=== PATIENT | female | born 1990 | race African-American/Black ===

== ENCOUNTER 2016-10-20 22:58 | Inpatient (IN) | payer OTHER ==
[2016-10-20 23:39] LABS: URINE SOURCE VOIDED
[2016-10-20 23:54] LABS: BILIRUBIN URINE NEGATIVE (NEGATIVE); BLOOD URINE 1+ (NEGATIVE); CLARITY CLEAR (CLEAR); COLOR YELLOW; GLUCOSE URINE NEGATIVE (NEGATIVE); LEUKOCYTES URINE 2+ (NEGATIVE); NITRITE URINE NEGATIVE (NEGATIVE); PROTEIN URINE 1+(30 mg/dL) mg/dL (NEGATIVE); SP GRAVITY URINE 1.015; UROBILINOGEN URINE 1+(1 mg/dL)
[2016-10-21] MEDS ORDERED: STADOL IV PRN (00:19)
[2016-10-21] MEDS ORDERED: PEPCID PO PRN (00:19)
[2016-10-21] MEDS ORDERED: KEFZOL 1 GM/D5W 50 ML IV PRN (00:19)
[2016-10-21] MEDS ORDERED: ZOFRAN IV PRN (00:19)
[2016-10-21] MEDS ORDERED: PEPCID IV PRN (00:19)
[2016-10-21] MEDS ORDERED: TYLENOL PO PRN (00:19)
[2016-10-21] MEDS ORDERED: PITOCIN 30 UNITS/LR 500 ML IV SCH (00:30)
[2016-10-21] MEDS ORDERED: SODIUM CHLORIDE 0.9% INJ SCH (00:30)
[2016-10-21] MEDS: LR 1,000 ML IV SCH ×3 (00:48→08:58)
[2016-10-21] MEDS ORDERED: MINERAL OIL ONE (03:25)
[2016-10-21] MEDS ORDERED: XYLOCAINE-MPF 1% ONE (03:25)
[2016-10-21] MEDS ORDERED: MARCAINE 0.25% PF ONE (03:31)
[2016-10-21] MEDS ORDERED: FENTANYL-BUPIV-NS 2 MCG-0.1% 200 ML ONE (03:31)
[2016-10-21 03:59] LABS: MANUAL DIFF NEEDED? NO
[2016-10-21 04:00] LABS: BASO% 0.1 % (0.0-0.8); EOS# 0.06 X1000 (0.0-0.7); EOS% 0.6 % (0.0-10.0); HEMATOCRIT 31.2 % (37.0-47.0); HEMOGLOBIN 10.4 g/dL (12.0-16.0); IMM GRAN# 0.01 X1000 (0.0-0.04); IMM GRAN% 0.1 % (0.0-0.5); LYMPH# 1.53 X1000 (1.2-3.4); LYMPH% 14.4 % (20.5-51.1); MCH 27.7 PG (27-31); MCHC 33.3 g/dL (33-37); MCV 83.2 FL (81-99); MONO# 1.05 X1000 (0.11-0.59); MONO% 9.9 % (1.7-9.3); MPV 12.1 FL (7.4-10.4); NEUT% 74.9 % (42.2-75.2); PLT 211 X1000 (130-400); RBC 3.75 XMIL (4.2-5.4)
[2016-10-21] MEDS ORDERED: GENTAMICIN IV PER PHARMACY MISC SCH (07:15)
[2016-10-21] MEDS: AMPICILLIN 2 GM/NS 100 ML IV SCH ×2 (07:26→20:12)
[2016-10-21] MEDS: GENTAMICIN IV SCH (08:12)
[2016-10-21] MEDS: NS IV SCH (08:12)
[2016-10-21 08:15] LABS: AGAP 14; BUN 6 mg/dL (8-22); CALCIUM 9.2 mg/dL (8.8-10.2); CHLORIDE 100 mmol/L (98-107); COSMO 266; SODIUM 134 mmol/L (136-145); TCO2 21 mmol/L (25-35)
[2016-10-21] MEDS ORDERED: PERCOCET-10 PO PRN (10:35)
[2016-10-21] MEDS ORDERED: BENADRYL IV PRN (10:35)
[2016-10-21] MEDS ORDERED: PITOCIN 30 UNITS/LR 500 ML IV ONE (10:35)
[2016-10-21] MEDS ORDERED: BENADRYL PO PRN (10:35)
[2016-10-21] MEDS ORDERED: PERI MEDS (DERMOPLAST/NUPERCAINAL/TUCKS) MISC PRN (10:35)
[2016-10-21] MEDS ORDERED: XYLOCAINE-MPF 1% INJ PRN (10:35)
[2016-10-21] MEDS ORDERED: PITOCIN IM PRN (10:35)
[2016-10-21] MEDS ORDERED: PERCOCET-5 PO PRN (10:35)
[2016-10-21] MEDS ORDERED: HYDROXYZINE IM PRN (10:35)
[2016-10-21] MEDS ORDERED: MOTRIN PO PRN (10:35)
[2016-10-21] MEDS ORDERED: M-M-R II VACCINE SUBQ ONE (10:35)
[2016-10-21] MEDS ORDERED: CYTOTEC PO PRN (10:35)
[2016-10-21] MEDS ORDERED: AMBIEN PO PRN (10:35)
[2016-10-21] MEDS ORDERED: HYDROXYZINE PO PRN (10:35)
[2016-10-21] MEDS ORDERED: MINERAL OIL MISC PRN (10:35)
[2016-10-21] MEDS ORDERED: PITOCIN 20 UNITS/LR 1,000 ML IV SCH (10:45)
[2016-10-21] MEDS ORDERED: NS 500 ML ONE (19:34)
[2016-10-21] MEDS: PERICOLACE PO SCH (20:13)
[2016-10-22] MEDS: NS IV SCH ×3 (00:06→09:02)
[2016-10-22] MEDS: GENTAMICIN IV SCH ×3 (00:06→09:02)
[2016-10-22] MEDS: AMPICILLIN 2 GM/NS 100 ML IV SCH ×2 (01:24→06:36)
[2016-10-22 05:55] LABS: MANUAL DIFF NEEDED? NO
[2016-10-22 06:02] LABS: BASO% 0.1 % (0.0-0.8); EOS# 0.06 X1000 (0.0-0.7); EOS% 0.5 % (0.0-10.0); HEMATOCRIT 30.5 % (37.0-47.0); IMM GRAN# 0.03 X1000 (0.0-0.04); IMM GRAN% 0.2 % (0.0-0.5); LYMPH# 1.69 X1000 (1.2-3.4); LYMPH% 13.4 % (20.5-51.1); MCH 27.7 PG (27-31); MCHC 32.8 g/dL (33-37); MCV 84.5 FL (81-99); MONO% 7.1 % (1.7-9.3); NEUT% 78.7 % (42.2-75.2); PLT 215 X1000 (130-400); RBC 3.61 XMIL (4.2-5.4)
--- NOTE | 2016-10-22 07:23 | OPERATIVE NOTE ---
PROCEDURE DATE : 10/21/2016 PREOPERATIVE DIAGNOSIS: A 25-year-old G4, P2-0-1-2, at 39 weeks and 1 day, multigravida. DIAGNOSIS: A 25-year-old G4, P2, 0-1-2, at 39 weeks and 1 day, multigravida, status post spontaneous vaginal delivery. DELIVERING PHYSICIAN: Dr. Shasta Figueroa. DELIVERY DATE: 10/21/2016. DESCRIPTION OF PROCEDURE: This 25-year-old G4, P2-0-1-2, at 39 weeks and 1 day , arrived on L D in active labor. The patient was noted to be complete complete +1. After good maternal effort, delivered from a left occiput anterior position was a 2945 g female, Apgars 9 and 10, EBL 200 mL, without difficulty. She was bulb suctioned at delivery. The cord was clamped and cut. A 3-vessel cord was noted. Placenta was delivered intact. A 2nd-degree perineal laceration was noted and was repaired in the normal fashion. Good hemostasis noted. The patient's intrapartum care was complicated by chorioamnionitis. The patient received ampicillin and gentamicin. Mother and baby were stable in the delivery room. [facility]
--- NOTE | 2016-10-22 19:50 | OB/GYN PROGRESS NOTE ---
Progress Note OB - . OB Progress Note: Vital Signs - 24 hr 10/21/16 10/22/16 10/22/16 23:37 04:00 08:54 Temperature 97.6 F 98.5 F 98.2 F Pulse Rate 106 H 97 H 107 H Respiratory 18 18 20 Rate Blood Pressure 126/74 115/73 140/73 O2 Sat by Pulse 100 Oximetry 10/22/16 16:00 Temperature 98.1 F Pulse Rate 91 H Respiratory 16 Rate Blood Pressure 140/80 O2 Sat by Pulse 99 Oximetry Laboratory Results - last 24 hr 10/22/16 10/22/16 10/22/16 05:10 08:35 10:33 WBC 12.65 H RBC 3.61 L Hgb 10.0 L Hct 30.5 L MCV 84.5 MCH 27.7 MCHC 32.8 L RDW Std Deviation 13.6 Plt Count 215 MPV 11.0 H Immature Gran % (Auto) 0.2 Neut % (Auto) 78.7 H Lymph % (Auto) 13.4 L [place] % (Auto) 7.1 Eos % (Auto) 0.5 Baso % (Auto) 0.1 Immature Gran # (Auto) 0.03 Neut # (Auto) 9.96 H Lymph # (Auto) 1.69 [place] # (Auto) 0.90 H Eos # (Auto) 0.06 Baso # (Auto) 0.01 Gentamicin Peak 4.60 L Gentamicin Trough 0.60 L Patient doing well this AM. Tolerating diet. Pain well controlled. Ambulation without difficulty. Exam: Gen: NAD, alert Abdomen: soft, nontender, fundus firm and at the umbilicus Pelvic: minimal lochia rubra Ext: nontender, no edema, Jaun's- A/P: 26yo who is PPD#1 s/p , complicated by chorioamnionitis, 2nd degree laceration repair, doing well -s/p Amp and Gent -continue Tylenol prn -regular diet -ibuprofen and percocet for pain Dispo: home in AM -Shasta Figueroa MD [employer]
[2016-10-22] MEDS: PERICOLACE PO SCH (20:20)
[2016-10-23 06:44] VITALS: BP 140/75
== END 2016-10-23 12:00 | disposition home or self-care (01) | DRG 775 ==
LOC: P.OPLD 22:58 → P.LD 23:00 → P.OPLD 10-21 00:15 → P.LD 10-21 00:16 → P.WC 10-21 12:48
PROVIDERS: ADMIT Student in an Organized Health Care Education/Training Program; ATTEND Student in an Organized Health Care Education/Training Program
PROC: 0KQM0ZZ Repair Perineum Muscle, Open Approach (ICD-10-PCS; 2016-10-21)
PROC: 10E0XZZ Delivery of Products of Conception, External Approach (ICD-10-PCS; principal; 2016-10-21 10:40)
DX: O41.1230 Chorioamnionitis, third trimester, not applicable or unspecified (principal); O70.1 Second degree perineal laceration during delivery; Z37.0 Single live birth; Z3A.39 39 weeks gestation of pregnancy
CPT/HCPCS: 36415; 59025; 80048; 80170; 81003; 84112; 85025; 86592; J0290; J0595; J1580; J2590; J7040; J7120; S0020